=== PATIENT | female | born 1955 | race Caucasian/White ===

== ENCOUNTER 2019-09-23 08:50 | Day surgery (SDC) | payer MEDICARE ==
[~2019-09-23] VITALS: Ht 160 cm; Wt 77.6 kg
[2019-09-23] VITALS (13 sets, daily range): BP systolic 100–168; BP diastolic 51–777; Ht 160 cm; Wt 77.6 kg
[~2019-09-23 08:50] MED LIST: ALBUTEROL SULF8.5 GM INH; CALCIUM 500 +1 EAC3 PO; CELEXA40 MG PO; CRESTOR10 MG PO; FLUTICASONE PRO16 GM NASAL; MELATONIN10 M1 PO; NEURONTIN 300300 MG PO; SINEQUAN25 MG PO; SYMBICORT 16010.2 GM INH; TYLENOL W/CODEI1 TAB PO; VOLTAREN75 MG PO
--- NOTE | 2019-09-23 14:18 | NUR ---
PT NOTED TO DISPLAY AIRWAY OBSTRUCTION MULTIPLE TIMES WHILE WAKING. RESOLVES TEMPORARILY UPON STIMULATION. WILL INCLUDE THIS INFORMATION IN REPORT HANDOFF.
--- NOTE | 2019-09-23 15:00 | NUR ---
PT ARRIVED IN THE UNIT. HOOKED TO ICU MONITORS. VSS. INCISION WELL APPROXIMATED TO RIGHT ANTERIOR NECK. ON 4L VIA NC. NSR ON THE MONITOR WITH OCCASIONAL PVC'S. PT DENIES PAIN. CALL LIGHT IN REACH. WILL CO0NT POC.
--- NOTE | 2019-09-23 18:20 | NUR ---
PT TOLERATING ICE CHIPS WELL.
[2019-09-24] VITALS (15 sets, daily range): BP systolic 108–140; BP diastolic 46–76
--- NOTE | 2019-09-24 07:58 | NUR ---
UP IN BED AT THIS TIME EATING BREAKFAST AT THIS TIME. VSS. CALL LIGHT IN REACH. PT NOTED TO HAVE EQUAL STREGNTHS, PUPILS EQUAL, TONGUE MIDLINE. PT NOTED TO HAVE SOME SLIGHT LEFT SIDED DROOP TO MOUTH WHEN SMILES, PT STATES THIS IS NORMAL FOR HER. INCISION SITE CDI. ALSO CONTINENT VOID NOTED VIA BEDSIDE TOILET, TRANSFERRED VIA STAND BY ASSIST. NO ACUTE DISTRESS NOTED. WILL CONTINUE PLAN OF CARE.
--- NOTE | 2019-09-24 09:06 | NUR ---
CHG BATH GIVEN AT THIS TIME. NOTED DURING BATH PT ACCIDENTLY BRUSHED UP AGAINST HER INCISION SITE AND CAUSED SCANT BLOOD; FEW DROPS. ICE PACK PLACED TO SITE. VSS. NO ACUTE DISTERESS NOTED. CALL LIGHT IN REACH. WILL CONTINUE PLAN OF CARE.
--- NOTE | 2019-09-24 10:20 | NUR ---
NO ACUTE DISTRESS NOTED. VSS. INCISION SITE CDI, NO S/S BLEEDING. CALL LIGHT IN REACH. WILL CONTINUE PLAN OF CARE.
--- NOTE | 2019-09-24 11:00 | NUR ---
VSS. CALL LIGHT IN REACH. PT AWAKE IN BED.
--- NOTE | 2019-09-24 12:00 | NUR ---
HELP PT TO BEDSIDE COMMODE. DENIES ANY NEEDS AT THIS TIME
--- NOTE | 2019-09-24 14:00 | NUR ---
PT SITTING UP IN BED. DENIES ANY NEEDS AT THIS TIME. VSS
--- NOTE | 2019-09-24 14:43 | NUR ---
DR HODGES HERE ROUNDING ON PT, STATES OKAY TO DC PT HOME.
--- NOTE | 2019-09-24 15:37 | NUR ---
PT DC TO HOME AT THIS TIME PER PHYSICAN ORDERS. LEFT VIA PERSONAL CAR WITH FAMILY WITH ALL PERSONAL ITEMS, DC INFORMATION, DC TEACHINGS, HARD SCRIPTS. 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 PT VERFIED UNDERSTANDING TO MAKE APPOINTMENT WITH DR. HODGES IN 2 WEEKS. PT DENIES ANY FURTHER QUESTIONS OR CONCERNS. PT ALSO STATES UNDERSTANDING TO NOT DRIVE AND TO LIMIT ACTIVITY DIRECTED BY THE PHYSICAN. IV DC TO LEFT HAND, CATHETER TIP INTACT. NO ACUTE DISTRESS. VSS. NO FURTHER ACTIONS.
--- NOTE | 2019-10-19 08:07 | OP ---
PATIENT NAME: MARC GILLESPIE MEDICAL RECORD: [id number] :51 LOCATION:D.[facility] ADMISSION DATE: SURGEON: RYAN POST MD DATE OF OPERATION: 09/23/2019 PREOPERATIVE DIAGNOSES: Disc herniation and osteophyte formation with spinal cord compression at C3-C4. POSTOPERATIVE DIAGNOSES: Disc herniation and osteophyte formation with spinal cord compression at C3-C4 with cervical myelopathy. PROCEDURE: Anterior cervical discectomy and fusion at C3-C4 with Zavation anterior cervical plate and screws, PEEK interbody cages, and Christine bone stem allograft. SURGEON: Ryan Post MD DESCRIPTION AND TECHNIQUE: After induction of general endotracheal anesthesia, the patient was positioned supine on the operating table. Neck was prepped and draped in usual sterile fashion. Fluoroscopic x-ray and freer localized the C3-C4 interspace on the right side. After infiltration of 1:100,000 epinephrine and 1% lidocaine, a transverse skin incision was carried out from the midline to the sternocleidomastoid muscle. The platysma was divided with sharp dissection with a #15 blade. Using blunt and sharp dissection with Metzenbaum scissors, I proceeded in avascular plane medial to the carotid sheath. The 3-4 interspace was identified with fluoroscopic x-ray and a spinal needle. Anterior osteophytes were removed with Adson rongeurs. The longus colli muscles were elevated from bodies of C3 and C4. A self-retaining retractor was placed deep to the longus colli muscles. Fortescue distracting pins were placed by the C3 and C4. The disc space was incised and the disc material was removed with the pituitary rongeurs and curettes. Next, under microscope, osteophytes were drilled away posteriorly with Midas-Johnathon drill. The posterior longitudinal ligament was removed with Cloward rongeurs. Following this, the dura was decompressed well. A PEEK interbody cage was placed in the disc space under distraction. Prior to this, it was filled with Christine bone allograft. A separate anterior cervical plate and screws was used to span the C3-C4 interspace. A locking cams were tightened down over the screw heads. Good position of the hardware was confirmed with fluoroscopic x-ray. Meticulous hemostasis was maintained throughout the wound. The wound was irrigated with copious amounts of Ancef irrigant solution. The platysma and subdermal layer closed with interrupted 3-0 Vicryl suture. The skin was reapproximated with Steri-Strips and benzoin. A sterile dressing was applied to the wound. The patient was awakened in good condition, taken to recovery. All counts were reported as correct. Estimated blood loss was minimal. 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
== END 2019-09-24 15:43 | disposition home or self-care (01) ==
LOC: D.ICU 08:50 → D.OPS 08:50 → D.PAN 09:45 → D.OPS 09:45 → D.MS 14:22 → D.ICU 14:32 → D.OPS 09-24 15:43
PROVIDERS: ATTEND Neurological Surgery
DX: M50.01 Cervical disc disorder with myelopathy, high cervical region (principal); G95.20 Unspecified cord compression; M54.12 Radiculopathy, cervical region; M48.02 Spinal stenosis, cervical region